=== PATIENT | female | born 1980 | race Caucasian/White ===

== ENCOUNTER 2016-05-20 01:07 | Emergency (ER) | payer SELFPAY ==
[~2016-05-20] VITALS: Ht 170.2 cm; Wt 95.3 kg
[2016-05-20 01:17] VITALS: BP 128/90
--- NOTE | 2016-05-20 02:00 | NUR ---
PATIENT AMBULATED TO ER BED 4
--- NOTE | 2016-05-20 02:15 | NUR ---
35Y/F PATIENT PRESENTS TO ED WITH C/O ABDOMINAL PAIN AND DISCHARGE X3DAYS. PATIENT STATES HAVING PAIN 3 DAYS WITH VAGINAL DISCHARGE, HX. ASTHMA, COUGH AT THIS TIME, ALSO NEED MED REFILL FOR ALBUTEROL AND SALINE PACKETS; SKIN IS PINK/WARM/DRY; AAOX4 WITH EVEN AND STEADY GAIT; BILATERAL LUNGS WHEEZING, COUGH; HR EVEN AND REGULAR; PT DENIES ANY FEVER, CP, SOB AT THIS TIME; PATIENT STATES PAIN OF 6/10 AT THIS TIME; VSS; PATIENT POSITIONED FOR COMFORT; HOB ELEVATED; BEDRAILS UP X2; BED DOWN. ER MD MADE AWARE OF PT STATUS.
--- NOTE | 2016-05-20 02:17 | NUR ---
Dr. Reyes evaluating patient at bedside.
[2016-05-20] MEDS ORDERED: ALBUTEROL 0.083% 2.5 MG/3 ML NEBU INH ONE (02:20)
[2016-05-20] MEDS ORDERED: KETOROLAC 60 MG/2 ML VIAL IM ONE (02:20)
--- NOTE | 2016-05-20 02:35 | NUR ---
RT AT PT BEDSIDE FOR TREATMENT
--- NOTE | 2016-05-20 03:28 | NUR ---
Ultrasound at bedside.
[2016-05-20 03:54] VITALS: BP 121/85
--- NOTE | 2016-05-20 03:55 | NUR ---
Patient discharged with v/s stable. Written and verbal after care instructions given and explained. Patient alert, oriented and verbalized understanding of instructions. Ambulatory with steady gait. All questions addressed prior to discharge. ID band removed. Patient advised to follow up with PMD. Rx of NAPROSYN 500 MG, ALBUTERAL 90MCG/ACTUATION, ZOFRAN 4MG, ALBUTERAL 0.083% NEBULIZER given. Patient educated on indication of medication including possible reaction and side effects. Opportunity to ask questions provided and answered.
== END 2016-05-20 03:55 | disposition home or self-care (01) ==
LOC: MED 01:07
DX: R19.7 Diarrhea, unspecified (principal); N83.202 Unspecified ovarian cyst, left side; R03.0 Elevated blood-pressure reading, without diagnosis of hypertension; R11.2 Nausea with vomiting, unspecified; J45.909 Unspecified asthma, uncomplicated
CPT/HCPCS: 36415; 76856; 80053; 81002; 81025; 85025; 85610; 85730; 94640; 94664; 96372; 99285; J1885; J7613; Q0092